=== PATIENT | female | born 1950 | race Caucasian/White ===

== ENCOUNTER 2018-03-12 07:00 | Inpatient (IN) | payer OTHER ==
[~2018-03-12] VITALS: Ht 165.1 cm; Wt 75.7 kg
[2018-03-12] MEDS ORDERED: FORTAMET1000 MG PO (08:35)
[2018-03-12] MEDS ORDERED: GEMFIBROZIL600 MG PO (08:36)
[2018-03-12] MEDS ORDERED: GLIPIZIDE10 MG PO (08:36)
[2018-03-12] MEDS ORDERED: LOSARTAN-HCTZ1 EAC1 PO (08:36)
[2018-03-12] MEDS ORDERED: SIMVASTATIN40 MG PO (08:37)
[2018-03-12] MEDS ORDERED: ZANTAC300 MG PO (08:37)
[2018-03-12] MEDS ORDERED: DICLOFENAC POTA50 MG PO (08:37)
[2018-03-12] MEDS ORDERED: CATAFLAN PO (08:38)
[2018-03-12] MEDS ORDERED: MECLIZINE HCL25 M1 PO (08:39)
[2018-03-22] MEDS ORDERED: XARELTO10 MG PO (18:11)
[2018-03-22] MEDS ORDERED: PERCOCET 5-3251 EACH PO (18:11)
[2018-03-22] MEDS ORDERED: DUI500 PO (18:11)
== END 2018-03-22 20:43 | DRG 470 ==
LOC: SURH 03-20 05:15 → O/R 03-20 05:15 → SURH 03-20 07:00
PROVIDERS: Orthopaedic Surgery
PROC: 0QNF0ZZ Release Left Patella, Open Approach (ICD-10-PCS; 2018-03-20)
PROC: 0SRD0J9 Replacement of Left Knee Joint with Synthetic Substitute, Cemented, Open Approach (ICD-10-PCS; principal; 2018-03-20 13:15)
DX: M17.12 Unilateral primary osteoarthritis, left knee (principal); D62 Acute posthemorrhagic anemia; N18.4 Chronic kidney disease, stage 4 (severe); M81.0 Age-related osteoporosis without current pathological fracture; M22.12 Recurrent subluxation of patella, left knee; I12.9 Hypertensive chronic kidney disease with stage 1 through stage 4 chronic kidney disease, or unspecified chronic kidney disease; E11.21 Type 2 diabetes mellitus with diabetic nephropathy; E11.22 Type 2 diabetes mellitus with diabetic chronic kidney disease; D63.1 Anemia in chronic kidney disease

== ENCOUNTER 2019-06-24 07:30 | Inpatient (IN) | payer OTHER ==
[~2019-06-24] VITALS: Ht 167.6 cm; Wt 78.0 kg
[~2019-06-24 07:30] MED LIST: CATAFLAN PO; DICLOFENAC POTA50 MG PO; DUI500 PO; FORTAMET1000 MG PO; GEMFIBROZIL600 MG PO; GLIPIZIDE10 MG PO; LOSARTAN-HCTZ1 EAC1 PO; MECLIZINE HCL25 M1 PO; PERCOCET 5-3251 EACH PO; SIMVASTATIN40 MG PO; XARELTO10 MG PO; ZANTAC300 MG PO
[2019-06-24] MEDS ORDERED: TRICOR145 MG PO (07:31)
[2019-06-24] MEDS ORDERED: JANUVIA100 MG PO (07:31)
[2019-06-24] MEDS ORDERED: GLUCOTROL XL5 MG PO (07:31)
[2019-07-04] MEDS ORDERED: DUI500 PO (15:16)
[2019-07-04] MEDS ORDERED: PERCOCET 5-3251 EACH PO (15:16)
[2019-07-04] MEDS ORDERED: ELIQUIS2.5 MG PO (15:16)
== END 2019-07-04 18:39 | DRG 470 ==
LOC: SURH 07-02 05:05 → O/R 07-02 05:05 → SURH 07-02 07:30
PROVIDERS: ADMIT Orthopaedic Surgery
PROC: 0MNN0ZZ Release Right Knee Bursa and Ligament, Open Approach (ICD-10-PCS; 2019-07-02)
PROC: 0SRC0J9 Replacement of Right Knee Joint with Synthetic Substitute, Cemented, Open Approach (ICD-10-PCS; principal; 2019-07-02 18:00)
DX: M17.11 Unilateral primary osteoarthritis, right knee (principal); M80.00XA Age-related osteoporosis with current pathological fracture, unspecified site, initial encounter for fracture; D62 Acute posthemorrhagic anemia; D68.318 Other hemorrhagic disorder due to intrinsic circulating anticoagulants, antibodies, or inhibitors; M22.11 Recurrent subluxation of patella, right knee; I10 Essential (primary) hypertension; E11.9 Type 2 diabetes mellitus without complications; Z79.4 Long term (current) use of insulin

== ENCOUNTER 2019-06-25 09:18 | Outpatient (CLI) | payer OTHER ==
[~2019-06-25 09:18] MED LIST changes: +GLUCOTROL XL5 MG PO; +JANUVIA100 MG PO; +TRICOR145 MG PO
== END 2019-06-25 09:29 | disposition home or self-care (01) ==
LOC: LAB 09:18
DX: M17.11 Unilateral primary osteoarthritis, right knee (principal)

== ENCOUNTER 2020-12-01 05:06 | Day surgery (SDC) | payer OTHER ==
[~2020-12-01 05:06] MED LIST changes: +ELIQUIS2.5 MG PO; +VALSARTAN-HCTZ1 EAC3 PO
== END 2020-12-01 10:07 | disposition home or self-care (01) ==
LOC: CIR.AMB 05:06
PROVIDERS: ATTEND Orthopaedic Surgery Hand Surgery
DX: M71.341 Other bursal cyst, right hand (principal); Z20.822 Contact with and (suspected) exposure to COVID-19

== ENCOUNTER 2021-03-17 09:44 | Outpatient (CLI) | payer OTHER | END 2021-03-17 09:51 | disposition home or self-care (01) | LOC: SONOGRAMA 09:44 → MAMO-SONO 11:00 | PROVIDERS: ATTEND Internal Medicine Endocrinology, Diabetes & Metabolism | DX: M75.31 Calcific tendinitis of right shoulder (principal); M75.101 Unspecified rotator cuff tear or rupture of right shoulder, not specified as traumatic ==